=== PATIENT | female | born 1995 | race Caucasian/White ===

== ENCOUNTER 2025-03-23 07:19 | Emergency (ER) | payer SELFPAY ==
[~2025-03-23] VITALS: Ht 162.6 cm; Wt 59.0 kg
[2025-03-23 07:39] VITALS: O2SAT 98
[2025-03-23] MEDS ORDERED: TOPUD PO (08:24)
[2025-03-23] MEDS ORDERED: FAMO-135 PO (08:24)
[2025-03-23] MEDS: MAGNESIUM/ALUMINUM HYDROXIDE/SIMETHICONE 30ML UDC PO STA (08:57)
[2025-03-23] MEDS: VISCOUS LIDOCAINE 2% 15 ML UDC PO STA (08:57)
[2025-03-23] MEDS: IBUPROFEN 400MG TABLET PO SCH (08:57)
[2025-03-23] MEDS: IBUPROFEN 600MG TABLET PO STA (08:58)
[2025-03-23] MEDS: ACETAMINOPHEN 325MG TABLET PO STA (08:58)
[2025-03-23] MEDS: METOCLOPRAMIDE HCL 10MG TABLET PO ONE (09:00)
[2025-03-23] MEDS: DICYCLOMINE 10 MG/5 ML ORAL SYR PO STA (09:00)
[2025-03-23 09:05] VITALS: BP 100/60; PULSE 58; RESP 16; TEMP 36.7; O2SAT 98
== END 2025-03-23 09:10 | disposition home or self-care (01) ==
LOC: ER 07:42
DX: K21.9 Gastro-esophageal reflux disease without esophagitis (principal); R51.9 Headache, unspecified; Z98.890 Other specified postprocedural states
CPT/HCPCS: 99284; J8597; Z7610

== ENCOUNTER 2025-05-09 12:04 | Emergency (ER) | payer SELFPAY ==
[~2025-05-09] VITALS: Ht 167.6 cm; Wt 60.0 kg
[~2025-05-09 12:04] MED LIST: FAMO-135 PO; TOPUD PO
[2025-05-09 12:19] VITALS: O2SAT 99
[2025-05-09 14:42] VITALS: BP 120/72; PULSE 70; RESP 16; TEMP 36.9; O2SAT 99
== END 2025-05-09 14:44 | disposition home or self-care (01) ==
LOC: ER 12:04
DX: S02.839A Fracture of medial orbital wall, unspecified side, initial encounter for closed fracture (principal); Z98.890 Other specified postprocedural states; Y04.0XXA Assault by unarmed brawl or fight, initial encounter; X58.XXXA Exposure to other specified factors, initial encounter; Y93.89 Activity, other specified; Y92.89 Other specified places as the place of occurrence of the external cause; Y99.8 Other external cause status
CPT/HCPCS: 70486; 81025; 99284